=== PATIENT | female | born 1980 | race Caucasian/White ===

== ENCOUNTER 2019-07-08 21:26 | Inpatient (IN) | payer MEDICAID ==
[~2019-07-08] VITALS: Ht 167.6 cm; Wt 43.3 kg
[~2019-07-08 21:26] MED LIST: NO HOME MEDS
[2019-07-08] MEDS ORDERED: magnesium hydroxide 30ml (MOM) UD suspension PO PRN (22:05)
[2019-07-08] MEDS ORDERED: mag hydrox/Alum hydrox/simeth 30ml oral suspension PO PRN (22:05)
[2019-07-08] MEDS ORDERED: acetaminophen 325mg tablet PO PRN (22:05)
[2019-07-08] MEDS ORDERED: loperamide 2mg capsule PO PRN (22:05)
[2019-07-08] MEDS: LORazepam 1 MG tablet PO PRN (23:27)
[2019-07-08] MEDS ORDERED: RISP2TAB97 PO (23:40)
[2019-07-08] MEDS ORDERED: OLAN5TAB3 PO (23:40)
[2019-07-08] MEDS ORDERED: RISP1TAB13 PO (23:40)
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
[2019-07-09] MEDS: olanzapine 10mg tablet PO SCH ×2 (00:03→20:50)
[2019-07-09 08:00] VITALS: BP 100/60
[2019-07-09] MEDS: OLANZAPINE 5 MG TABLET PO SCH (08:03)
[2019-07-09 08:28] LABS: CHOL/HDL RATIO 2.8 (0.00-4.99); CHOLESTEROL 215 MG/DL (0-200); HDL CHOLESTEROL 78 MG/DL (35-60); LDL CHOLESTEROL 118 MG/DL (50-100); TRIGLYCERIDES 98 MG/DL (20-135)
[2019-07-09 08:32] LABS: HEMOGLOBIN A1C 4.8 % (4.5-6.2)
[2019-07-09] MEDS ORDERED: tuberculin, purif. prot. deriv. 5 units/0.1ml ID ONE (10:00)
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
[2019-07-09 19:37] VITALS: BP 132/53
[2019-07-09] MEDS: LORazepam 1 MG tablet PO PRN (20:50)
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
[2019-07-09] MEDS: divalproex sod 250mg ER (24-hour) tablet PO SCH (22:13)
[2019-07-10 07:43] VITALS: BP 97/63
[2019-07-10] MEDS: OLANZAPINE 5 MG TABLET PO SCH (07:56)
--- NOTE | 2019-07-10 16:02 | NUR ---
DISCHARGE PLANNING: ALLISON made TC to [facility] and learned pt receives psychiatric tx through [facility] and primary medical tx through [facility]. ALLISON was informed pt last seen at clinic in November 2018 and October 2018. ALLISON requested a psychiatric appointment with Dr. Clark. Tiffany Araujo, Creative Resource Manager HOME AGENT [id number] Supervised by Wali Ribeiro, [id number]
--- NOTE | 2019-07-10 18:34 | NUR ---
Nursing Progress Note Legal hold: 5150 Client on involuntary status for DTS. Report received from MAGALI Yates with use of SBAR. Why are they here: Pt on a 5150 for GD after she was BIB her daughter from [facility] (where she lives). Pt apparently has a dx of bipolar, but has stopped taking her medications about a week ago because she doesn't believe in the dx. Pt compliant with admission process; though, she is tangential and hyperverbal. Will provide safe environment while stabilizing on medications. Assessment What has happened this shift: Patient doing cartwheels in hallway at start of shift. Patient appears manic and is in her room cussing at someone, also talking to unknown persons in dining room. S/I, H/I: Denies A/VH: Denies Sleep: 7 hrs NOC. ADL's: Self Group attendance: Yes Were meds taken: Yes Any med S/E: None reported or observed. Mental Status Exam Appearance: Green Scrubs Eye contact: Direct Behavior: Calm Speech: Clear Mood: Calm and cooperative Affect: Animated Thought process: a bit disorganized, forgetful Thought Content: Worried about having to go to court today. States she didn't know she was on 5250 and became tearful when informed. Cognition: A/Ox3 Insight: Poor Judgment: Poor Interventions: PRN's used: N/A Therapeutic interventions: 1:1 assessment, provided therapeutic communication with active listening, administration/education/monitoring of medications, encouraged to shower and clean her bed area, maintained q15m safety checks. Restraints/seclusion/emergency medication: None Justification of Continued Inpatient Treatment: Pt is unable to utilize the resources available to her. She is unable to provide himself with penitentiary, clothing, or food.
[2019-07-10 19:42] VITALS: BP 127/63
[2019-07-10] MEDS: olanzapine 10mg tablet PO SCH (20:26)
[2019-07-10] MEDS: divalproex sod 250mg ER (24-hour) tablet PO SCH (20:26)
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
[2019-07-11] MEDS ORDERED: ondansetron 4mg rapidly disintigrating tab PO ONE (04:00)
[2019-07-11 08:06] VITALS: BP 102/69
[2019-07-11] MEDS: OLANZAPINE 5 MG TABLET PO SCH (08:23)
--- NOTE | 2019-07-11 18:06 | NUR ---
Nursing Progress Note Legal hold: 5150 Client on involuntary status for DTS. Report received from Lavonne Goff RN with use of SBAR. Why are they here: Pt on a 5150 for GD after she was BIB her daughter from [facility] (where she lives). Pt apparently has a dx of bipolar, but has stopped taking her medications about a week ago because she doesn't believe in the dx. Pt compliant with admission process; though, she is tangential and hyperverbal. Will provide safe environment while stabilizing on medications. Assessment What has happened this shift: Patient has has GI virus, and has had diarrhea five times today, and vomiting. Patient has stayed in bed all day, which is not usual for her. Pt. not eating due to GI upset. Patient did get up and was angrily walking hallways. For short time. S/I, H/I: Denies A/VH: Denies Sleep: Slept most of the day. ADL's: Self Group attendance: No Were meds taken: Yes Any med S/E: None reported or observed. Mental Status Exam Appearance: Disheveled wearing green Scrubs Eye contact: Fair. Behavior: Sleeping all day. Speech: Clear Mood: Subdued. Affect: Flat. Thought process: Linear. Thought Content: Not feeling well. Cognition: A/Ox3 Insight: Poor Judgment: Poor Interventions: PRN's used: N/A Therapeutic interventions: 1:1 assessment, provided therapeutic communication with active listening, administration/education/monitoring of medications, encouraged hydration, q15" safety checks. Restraints/seclusion/emergency medication: None Justification of Continued Inpatient Treatment: Patient needs interruption of crisis, medication stabilization and support to prevent rehospitalization.
[2019-07-11 19:00] VITALS: BP 116/42
[2019-07-11] MEDS: olanzapine 10mg tablet PO SCH (20:43)
[2019-07-11] MEDS: divalproex sod 250mg ER (24-hour) tablet PO SCH (20:43)
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
[2019-07-12 07:29] VITALS: BP 112/38
[2019-07-12] MEDS: OLANZAPINE 5 MG TABLET PO SCH (08:23)
[2019-07-12] MEDS: LORazepam 1 MG tablet PO PRN (11:39)
[2019-07-12] MEDS ORDERED: diphenhydrAMINE 25mg capsule PO ONE (11:55)
[2019-07-12] MEDS ORDERED: haloperidol 5mg tablet PO ONE (11:55)
[2019-07-12] MEDS ORDERED: LORazepam 1 MG tablet PO ONE (11:55)
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
[2019-07-12 20:00] VITALS: BP 108/62
[2019-07-12] MEDS: olanzapine 10mg tablet PO SCH (20:53)
[2019-07-12] MEDS: divalproex sod 250mg ER (24-hour) tablet PO SCH (20:54)
[2019-07-12] MEDS: hydrOXYzine 25 MG tablet PO PRN (20:54)
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
[2019-07-13 08:00] VITALS: BP 113/52
[2019-07-13] MEDS: OLANZAPINE 5 MG TABLET PO SCH (08:18)
[2019-07-13] MEDS: hydrOXYzine 25 MG tablet PO PRN ×2 (08:18→20:27)
--- NOTE | 2019-07-13 10:18 | NUR ---
Initial: Pt admit w/ bipolar PO 75-100% regular diet meeting needs. LB 07/12. No nutrition concerns at this time. Will continue to monitor. Addendum: 07/13/19 at [address] Amended: Links added.
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
[2019-07-13 19:28] VITALS: BP 104/68
[2019-07-13] MEDS: olanzapine 10mg tablet PO SCH (20:26)
[2019-07-13] MEDS: divalproex sod 250mg ER (24-hour) tablet PO SCH (20:26)
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
[2019-07-14 07:30] VITALS: BP 107/60
[2019-07-14] MEDS: hydrOXYzine 25 MG tablet PO PRN (07:58)
[2019-07-14] MEDS: OLANZAPINE 5 MG TABLET PO SCH (07:58)
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
[2019-07-14] MEDS ORDERED: haloperidol 5mg tablet PO ONE (15:35)
[2019-07-14] MEDS ORDERED: diphenhydrAMINE 25mg capsule PO ONE (15:35)
[2019-07-14] MEDS: LORazepam 1 MG tablet PO PRN (15:40)
[2019-07-14 20:28] VITALS: BP 109/57
[2019-07-14] MEDS ORDERED: olanzapine 10mg tablet PO SCH (21:00)
[2019-07-14] MEDS: divalproex sod 250mg ER (24-hour) tablet PO SCH (21:39)
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
[2019-07-15 07:25] VITALS: BP 111/64
[2019-07-15] MEDS ORDERED: OLANZapine 5mg rapidly disint. tablet PO SCH (08:00)
[2019-07-15] MEDS: OLANZAPINE 5 MG TABLET PO SCH (08:50)
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
[2019-07-15 20:52] VITALS: BP 122/55
[2019-07-15] MEDS: divalproex sod 250mg ER (24-hour) tablet PO SCH (21:05)
[2019-07-15] MEDS: olanzapine 10mg tablet PO SCH (21:07)
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
[2019-07-16 07:00] VITALS: BP 107/86
[2019-07-16] MEDS: OLANZAPINE 5 MG TABLET PO SCH (07:46)
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
[2019-07-16] MEDS: olanzapine 10mg tablet PO SCH (20:18)
[2019-07-16 20:31] VITALS: BP 96/54
[2019-07-16 20:36] VITALS: BP 96/54
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
[2019-07-17 08:00] VITALS: BP 109/71
[2019-07-17] MEDS ORDERED: divalproex sod 250mg ER (24-hour) tablet PO SCH (08:00)
[2019-07-17] MEDS: OLANZAPINE 5 MG TABLET PO SCH (08:47)
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
[2019-07-17 20:00] VITALS: BP 109/54
[2019-07-17] MEDS: olanzapine 10mg tablet PO SCH (20:32)
[2019-07-17] MEDS: hydrOXYzine 25 MG tablet PO PRN (22:30)
[2019-07-17] MEDS: acetaminophen 325mg tablet PO PRN (22:33)
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
[2019-07-18 08:00] VITALS: BP 101/50
[2019-07-18] MEDS ORDERED: divalproex sod 250mg ER (24-hour) tablet PO SCH (08:00)
[2019-07-18] MEDS: OLANZAPINE 5 MG TABLET PO SCH (08:11)
[2019-07-18] MEDS: divalproex sod 250mg ER (24-hour) tablet PO SCH (08:14)
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
[2019-07-18 19:31] VITALS: BP 119/83
[2019-07-18] MEDS: olanzapine 10mg tablet PO SCH (20:30)
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
[2019-07-19 08:00] VITALS: BP 115/42
[2019-07-19] MEDS: OLANZAPINE 5 MG TABLET PO SCH (08:18)
[2019-07-19] MEDS: divalproex sod 250mg ER (24-hour) tablet PO SCH (08:19)
[2019-07-19] MEDS: LORazepam 1 MG tablet PO PRN (09:22)
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
[2019-07-19 19:51] VITALS: BP 106/71
[2019-07-19] MEDS: olanzapine 10mg tablet PO SCH (20:45)
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
[2019-07-20 07:44] VITALS: BP 124/64
[2019-07-20] MEDS: divalproex sod 250mg ER (24-hour) tablet PO SCH (07:58)
[2019-07-20] MEDS: OLANZAPINE 5 MG TABLET PO SCH (07:58)
[2019-07-20] MEDS: LORazepam 1 MG tablet PO PRN (09:18)
--- NOTE | 2019-07-20 10:56 | NUR ---
reassessment: Pt PO 75-100% regular meals meeting needs. LBM 07/19. No nutrition concerns at this time. Will continue to monitor. Addendum: 07/20/19 at [address] Amended: Links added.
[2019-07-20] MEDS ORDERED: olanzapine 10mg tablet PO SCH (12:30)
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
[2019-07-20 20:00] VITALS: BP 115/55
[2019-07-20] MEDS: olanzapine 10mg tablet PO SCH (21:03)
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
[2019-07-21 07:00] VITALS: BP 115/49
[2019-07-21] MEDS: divalproex sod 250mg ER (24-hour) tablet PO SCH (07:42)
[2019-07-21] MEDS: OLANZAPINE 5 MG TABLET PO SCH ×2 (07:43→13:08)
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
[2019-07-21 20:27] VITALS: BP 116/60
[2019-07-21] MEDS: olanzapine 10mg tablet PO SCH (20:27)
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
[2019-07-22 07:36] VITALS: BP 108/67
[2019-07-22] MEDS: OLANZAPINE 5 MG TABLET PO SCH ×2 (07:59→13:04)
[2019-07-22] MEDS: divalproex sod 250mg ER (24-hour) tablet PO SCH (07:59)
[2019-07-22] MEDS: hydrOXYzine 25 MG tablet PO PRN (07:59)
[2019-07-22] MEDS: LORazepam 1 MG tablet PO PRN (08:51)
[2019-07-22] MEDS ORDERED: LORazepam 1 MG tablet PO STA (09:14)
[2019-07-22] MEDS: lithium carbonate 150mg capsule PO SCH ×2 (13:04→20:32)
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
[2019-07-22 20:25] VITALS: BP 100/48
[2019-07-22] MEDS: olanzapine 10mg tablet PO SCH (20:32)
--- NOTE | 2019-07-23 00:13 | NUR ---
Nursing Progress Note: The patient spent the majority of the evening on her bed sleeping. She was up out of bed for approximately 30 minutes to have snack. While up in the patient dining room she was polite, appropriate with peers and staff. One to one with the patient to assess severity of psychiatric symptoms. She denied any kind of medical problems or pain. She denied that she was having any suicidal or homicidal thoughts. She has been on q 15 minute safety checks. She denies having any psychotic symptoms and none were acutely evident in the brief time she was awake. She denied anxiety. She was medication complaint and she denied side effects to medications.
[2019-07-23] MEDS: lithium carbonate 150mg capsule PO SCH ×3 (07:56→20:04)
[2019-07-23] MEDS: divalproex sod 250mg ER (24-hour) tablet PO SCH (07:57)
[2019-07-23] MEDS: OLANZAPINE 5 MG TABLET PO SCH ×2 (07:57→12:30)
[2019-07-23 08:16] VITALS: BP 98/60
[2019-07-23 08:17] VITALS: BP 98/60
[2019-07-23] MEDS ORDERED: haloperidol lactate 5mg/ml inj ONE (10:48)
[2019-07-23] MEDS ORDERED: diphenhydrAMINE 50 mg/ml inj ONE (10:48)
[2019-07-23] MEDS ORDERED: LORazepam 2 mg/ml vial ONE (10:50)
--- NOTE | 2019-07-23 12:38 | NUR ---
At approximately 1030 patient became very agitated and unable to control behavior. Medicated with B52 (2mg Ativan, 50mg Benadryl, and 10mg Haldol). 1230 dose of Olanzapine held as patient is sleeping and had received Haldol.
--- NOTE | 2019-07-23 13:04 | NUR ---
MED NOTE: Patient received B52 at 1030. Per Tia Tran lithium held and should be given with PM dose.
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
[2019-07-23 19:54] VITALS: BP 107/71
[2019-07-23] MEDS: olanzapine 10mg tablet PO SCH (20:04)
[2019-07-23] MEDS ORDERED: lithium carbonate 150mg capsule PO ONE (21:00)
--- NOTE | 2019-07-23 22:37 | NUR ---
Nursing Progress Note: One to one with the patient to assess for the severity of psychiatric symptoms. She was initially resting on her bed and was cooperative with the evening assessment. All of her replies were superficial and brief. She quickly became angry when recalling an incident involving a visit she had earlier in the day. She denied having any side effects to medications and she was medication compliant. When asked how her mood was she gave a clipped reply "fine" but she was clearly angry. She did get up and sitting the dining room for the evening snack. She appeared to be disheveled and with dirty uncombed hair. She did not have any disruptive behaviors.
[2019-07-24 07:41] VITALS: BP 98/42
[2019-07-24] MEDS: lithium carbonate 150mg capsule PO SCH ×3 (08:14→21:20)
[2019-07-24] MEDS: OLANZAPINE 5 MG TABLET PO SCH ×2 (08:14→12:10)
[2019-07-24] MEDS: divalproex sod 250mg ER (24-hour) tablet PO SCH (08:39)
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
[2019-07-24 20:00] VITALS: BP 92/55
[2019-07-24] MEDS: olanzapine 10mg tablet PO SCH (21:21)
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
[2019-07-25 07:23] VITALS: BP 93/50
[2019-07-25] MEDS: OLANZAPINE 5 MG TABLET PO SCH ×2 (07:37→12:31)
[2019-07-25] MEDS: lithium carbonate 150mg capsule PO SCH ×3 (07:37→20:14)
[2019-07-25] MEDS: divalproex sod 250mg ER (24-hour) tablet PO SCH (07:37)
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
[2019-07-25 19:44] VITALS: BP 95/49
[2019-07-25 20:10] VITALS: BP 95/55
[2019-07-25] MEDS: olanzapine 10mg tablet PO SCH (20:14)
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
[2019-07-26] MEDS: OLANZAPINE 5 MG TABLET PO SCH ×2 (06:59→12:26)
[2019-07-26] MEDS: LORazepam 1 MG tablet PO PRN (07:00)
[2019-07-26] MEDS: lithium carbonate 150mg capsule PO SCH ×3 (07:00→21:09)
[2019-07-26] MEDS: divalproex sod 250mg ER (24-hour) tablet PO SCH (07:01)
[2019-07-26 07:14] VITALS: BP 98/62
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
[2019-07-26 19:34] VITALS: BP 105/43
[2019-07-26] MEDS: olanzapine 10mg tablet PO SCH (21:09)
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
[2019-07-27] MEDS: OLANZAPINE 5 MG TABLET PO SCH ×2 (07:39→12:46)
[2019-07-27] MEDS: divalproex sod 250mg ER (24-hour) tablet PO SCH (07:41)
[2019-07-27] MEDS: lithium carbonate 150mg capsule PO SCH ×3 (07:43→20:44)
[2019-07-27 08:00] VITALS: BP 103/64
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
--- NOTE | 2019-07-27 18:30 | NUR ---
Patient in room MH 324. I have received report from RN and had the opportunity to ask questions and assume patient care.
--- NOTE | 2019-07-27 18:40 | NUR ---
brianna in [place]
[2019-07-27 19:57] VITALS: BP 101/45
[2019-07-27] MEDS: olanzapine 10mg tablet PO SCH (20:44)
--- NOTE | 2019-07-27 20:46 | NUR ---
sitting up in bed no complaints. calm and pleasant
[2019-07-28] MEDS: OLANZAPINE 5 MG TABLET PO SCH ×2 (07:53→13:19)
[2019-07-28] MEDS: lithium carbonate 150mg capsule PO SCH ×3 (07:54→20:35)
[2019-07-28] MEDS: divalproex sod 250mg ER (24-hour) tablet PO SCH (07:55)
[2019-07-28 08:00] VITALS: BP 106/60
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
[2019-07-28 20:00] VITALS: BP 119/72
[2019-07-28] MEDS: olanzapine 10mg tablet PO SCH (20:35)
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
[2019-07-29 07:27] VITALS: BP 99/45
[2019-07-29] MEDS: OLANZAPINE 5 MG TABLET PO SCH ×3 (08:10→20:34)
[2019-07-29] MEDS: divalproex sod 250mg ER (24-hour) tablet PO SCH (08:10)
[2019-07-29] MEDS: lithium carbonate 150mg capsule PO SCH ×3 (08:11→20:38)
--- NOTE | 2019-07-29 09:56 | NUR ---
reassessment: Pt PO 75-100% regular meals meeting needs. LBM 07/28. No nutrition concerns at this time. Will continue to monitor. Recommend: 1. continue regular diet 2. weekly wts Addendum: 07/29/19 at [address] Amended: Links added.
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
[2019-07-29 20:08] VITALS: BP 99/52
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
[2019-07-30] MEDS: lithium carbonate 150mg capsule PO SCH ×3 (07:43→20:38)
[2019-07-30] MEDS: divalproex sod 250mg ER (24-hour) tablet PO SCH (07:44)
[2019-07-30] MEDS: OLANZAPINE 5 MG TABLET PO SCH ×3 (07:44→20:38)
[2019-07-30 08:00] VITALS: BP 104/45
--- NOTE | 2019-07-30 12:12 | NUR ---
DISCHARGE PLANNING: Maged from [facility] interviewed pt for potential acceptance of temporary placement. Maged reports he would prefer to interview pt again next week to see if medication reduces any sx of demetrio or increases thought process/clarity. ALLISON agreed to contact again on Sunday. Tiffany Araujo, Crossing Tender [employer]LECT[employer]LE [employer]IVER [id number] Supervised by Wali Ribeiro, [id number]
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
[2019-07-30 20:12] VITALS: BP 104/60
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
[2019-07-31 07:36] VITALS: BP 107/68
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
[2019-07-31] MEDS: divalproex sod 250mg ER (24-hour) tablet PO SCH (08:28)
[2019-07-31] MEDS: lithium carbonate 150mg capsule PO SCH ×3 (08:28→20:44)
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
[2019-07-31 20:11] VITALS: BP 99/57
[2019-07-31] MEDS ORDERED: OLANZAPINE 5 MG TABLET PO SCH (21:00)
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
[2019-08-01 08:03] VITALS: BP 88/54
[2019-08-01] MEDS: lithium carbonate 150mg capsule PO SCH ×3 (08:14→20:31)
[2019-08-01] MEDS: divalproex sod 250mg ER (24-hour) tablet PO SCH (08:14)
[2019-08-01] MEDS ORDERED: buPROPion 75mg tablet PO ONE (15:50)
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
[2019-08-01 20:00] VITALS: BP 96/58
[2019-08-01] MEDS ORDERED: OLANZAPINE 5 MG TABLET PO SCH (21:00)
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
[2019-08-02] MEDS ORDERED: buPROPion 100mg tablet PO SCH (07:30)
[2019-08-02] MEDS: buPROPion 75mg tablet PO SCH ×2 (07:58→12:49)
[2019-08-02] MEDS: divalproex sod 250mg ER (24-hour) tablet PO SCH (07:59)
[2019-08-02] MEDS: lithium carbonate 150mg capsule PO SCH ×3 (07:59→20:11)
[2019-08-02 08:29] VITALS: BP 98/48
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
[2019-08-02 20:00] VITALS: BP 100/50
[2019-08-02] MEDS: hydrOXYzine 25 MG tablet PO PRN (22:02)
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
[2019-08-03] MEDS: LORazepam 1 MG tablet PO PRN ×2 (01:04→21:45)
[2019-08-03 08:00] VITALS: BP 94/60
[2019-08-03] MEDS: buPROPion 100mg tablet PO SCH ×2 (08:14→12:22)
[2019-08-03] MEDS: divalproex sod 250mg ER (24-hour) tablet PO SCH (08:15)
[2019-08-03] MEDS: lithium carbonate 150mg capsule PO SCH ×3 (08:15→20:12)
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
[2019-08-03 19:26] VITALS: BP 108/59
[2019-08-03] MEDS: acetaminophen 325mg tablet PO PRN (21:09)
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
--- NOTE | 2019-08-04 07:44 | NUR ---
COLLATERAL/DISCHARGE PLANNING: SW made TC to pt's father, Gary at [phone], who reports he will be picking up pt on 08/05/2019 at 08:00 hours. He reports he will be having pt discharge to his home, then admit to a substance use recovery program. Tiffany Araujo, Die Tester BOILING TUB OPERATOR [id number] Supervised by Wali Ribeiro, [id number]
[2019-08-04 07:57] VITALS: BP 117/63
[2019-08-04] MEDS: divalproex sod 250mg ER (24-hour) tablet PO SCH (08:31)
[2019-08-04] MEDS: buPROPion 100mg tablet PO SCH ×2 (08:31→13:14)
[2019-08-04] MEDS: lithium carbonate 150mg capsule PO SCH ×3 (08:32→20:18)
[2019-08-04] MEDS ORDERED: DIVA250T8 PO (13:58)
[2019-08-04] MEDS ORDERED: DIVA500T2 PO (13:58)
[2019-08-04] MEDS ORDERED: LIT300C PO (13:58)
[2019-08-04] MEDS ORDERED: BUPR100T16 PO (13:58)
[2019-08-04] MEDS ORDERED: HYDR-3686 PO (13:58)
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
[2019-08-04 20:27] VITALS: BP 122/57
[2019-08-04] MEDS: LORazepam 1 MG tablet PO PRN (21:05)
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
[2019-08-05 07:36] VITALS: BP 120/68
[2019-08-05] MEDS: lithium carbonate 150mg capsule PO SCH (07:47)
[2019-08-05] MEDS: divalproex sod 250mg ER (24-hour) tablet PO SCH (07:47)
[2019-08-05] MEDS: buPROPion 100mg tablet PO SCH (07:47)
--- NOTE | 2019-08-05 08:21 | NUR ---
Discharge note: Pt discharged without incident and was accompanied by this nurse and her father to home via personal vehicle. She left with all of her personal items in possession as per inventory. Pt was pleasant and cooperative with care. She denied SI/HI/AH/VH. She has exhibited improvement since admission and exhibits no s/sx of demetrio or depression. Pt states "I feel so great and am really happy to discharge. I am going to be better". No acute physical or emotional distress observed. Nicotine replacement and cessation education offered and Pt declined. Follow up instructions were given, questions were answered and Pt verbalized understanding and denied further needs.
== END 2019-08-05 08:40 | disposition home or self-care (01) | DRG 753 ==
LOC: ADULT MH 21:59
PROVIDERS: ADMIT Psychiatry & Neurology Psychiatry; ATTEND Psychiatry & Neurology Psychiatry
DX: F31.2 Bipolar disorder, current episode manic severe with psychotic features (principal); R45.851 Suicidal ideations; F12.90 Cannabis use, unspecified, uncomplicated; F17.210 Nicotine dependence, cigarettes, uncomplicated; Z80.0 Family history of malignant neoplasm of digestive organs; Z79.899 Other long term (current) drug therapy
CPT/HCPCS: 36415; 80061; 80164; 80178; 83036; 87081; J1200; J1630; J2060; Q0163; Z7610

== ENCOUNTER 2023-04-14 10:19 | Emergency (ER) | payer MEDICAID ==
[~2023-04-14] VITALS: Ht 157.5 cm; Wt 50.0 kg
[~2023-04-14 10:19] MED LIST changes: +BUPR-122 PO; +DIVA250T8 PO; +DIVA500T2 PO; +HYDR-3686 PO; +LIT300C PO; -NO HOME MEDS
[2023-04-14] MEDS ORDERED: normal saline 1000ML IV soln IV ONE (10:35)
[2023-04-14] MEDS ORDERED: LORazepam 2 mg/ml vial IV ONE (10:35)
[2023-04-14 10:54] LABS: BASOPHILS # (AUTO) 0.1 X10'3 (0-0.2); BASOPHILS % (AUTO) 0.9 % (0-1); EOSINOPHILS # (AUTO) 0.1 X10'3 (0-0.9); EOSINOPHILS % (AUTO) 1.7 % (0-6); HEMATOCRIT 31.1 % (35.0-45.0); HEMOGLOBIN 10.7 g/dl (12.0-16.0); LYMPHOCYTES % (AUTO) 28.4 % (21-51); MEAN CORPUSCULAR HEMOGLOBIN 31.3 PG (27.0-31.0); MEAN CORPUSCULAR HGB CONC 34.4 g/dL (33.0-36.5); MEAN CORPUSCULAR VOLUME 90.9 FL (78-98); MEAN PLATELET VOLUME 9.2 FL (7.4-10.4); MONOCYTES # (AUTO) 0.7 X10'3 (0-0.9); NEUTROPHILS # (AUTO) 4.2 X10'3 (1.8-7.7); PLATELET COUNT 213 X10'3 (140-440); RED BLOOD COUNT 3.42 X10'6 (4.20-5.60); RED CELL DISTRIBUTION WIDTH 14.2 % (11.5-14.5); WHITE BLOOD COUNT 7.1 X10'3 (4.5-11.0)
[2023-04-14 11:09] LABS: ALANINE AMINOTRANSFERASE 95 U/L (12-78); ALBUMIN 3.3 G/DL (3.4-5.0); ALBUMIN/GLOBULIN RATIO 1.3 (1.1-1.5); ALKALINE PHOSPHATASE 59 IU/L (46-116); ANION GAP 6 (8-16); ASPARTATE AMINO TRANSFERASE 91 U/L (10-37); BILIRUBIN,TOTAL 0.3 MG/DL (0.1-1.0); BLOOD UREA NITROGEN 33 MG/DL (7-18); CALCIUM 7.9 MG/DL (8.5-10.1); CHLORIDE 108 MMOL/L (99-107); CREATININE 1.22 MG/DL (0.40-0.90); GLUCOSE 89 MG/DL (70-104); MAGNESIUM 1.6 MG/DL (1.5-2.4); SODIUM 144 MMOL/L (135-145); TOTAL CARBON DIOXIDE 29.7 MMOL/L (24-32); TOTAL PROTEIN 5.9 G/DL (6.4-8.2); eGFR 48 ML/MIN
--- NOTE | 2023-04-14 11:13 | NUR ---
Pt is now calm. Pt is resting in bed, no longer trying to pull of her clothes.
[2023-04-14 11:19] LABS: POTASSIUM 2.9 MMOL/L (3.5-5.1)
[2023-04-14] MEDS ORDERED: potassium Cl 20 mEq SR tablet PO STA (11:25)
--- NOTE | 2023-04-14 12:09 | NUR ---
Pt in bed resting
--- NOTE | 2023-04-14 13:17 | NUR ---
Pt in bed resting, eye closed
[2023-04-14 13:50] VITALS: BP 117/69
--- NOTE | 2023-04-14 14:01 | NUR ---
Pt up to the RR. Voided
--- NOTE | 2023-04-14 14:08 | NUR ---
Pt in bed resting, eyes closed
--- NOTE | 2023-04-14 15:58 | NUR ---
Pt in bed resting. Eyes closed.
== END 2023-04-14 17:59 | disposition home or self-care (01) ==
LOC: ER 10:20
DX: F19.10 Other psychoactive substance abuse, uncomplicated (principal); E86.0 Dehydration; E87.6 Hypokalemia; F31.9 Bipolar disorder, unspecified; F12.90 Cannabis use, unspecified, uncomplicated; Z56.0 Unemployment, unspecified
CPT/HCPCS: 36415; 71045; 80053; 83735; 84484; 85025; 96374; 99284; J2060; J7030

== ENCOUNTER 2023-04-15 22:39 | Emergency (ER) | payer MEDICAID ==
[~2023-04-15] VITALS: Ht 167.6 cm; Wt 110.0 kg
[2023-04-15 23:19] VITALS: BP 134/101
[2023-04-15 23:39] LABS: HCG SERUM QL NEGATIVE
== END 2023-04-15 23:56 | disposition home or self-care (01) ==
LOC: ER 22:39
DX: F15.10 Other stimulant abuse, uncomplicated (principal); F12.10 Cannabis abuse, uncomplicated; F31.9 Bipolar disorder, unspecified; Z79.899 Other long term (current) drug therapy
CPT/HCPCS: 36415; 84703; 99283

== ENCOUNTER 2023-04-21 11:42 | Emergency (ER) | payer MEDICAID ==
[~2023-04-21] VITALS: Ht 162.6 cm; Wt 56.8 kg
[2023-04-21 12:32] LABS: BASOPHILS % (AUTO) 0.6 % (0-1); EOSINOPHILS # (AUTO) 0.1 X10'3 (0-0.9); EOSINOPHILS % (AUTO) 1.3 % (0-6); HEMATOCRIT 34.9 % (35.0-45.0); HEMOGLOBIN 11.7 g/dl (12.0-16.0); LYMPHOCYTES # (AUTO) 1.8 X10'3 (1.1-4.8); LYMPHOCYTES % (AUTO) 21.1 % (21-51); MEAN CORPUSCULAR HEMOGLOBIN 30.8 PG (27.0-31.0); MEAN CORPUSCULAR HGB CONC 33.4 g/dL (33.0-36.5); MEAN CORPUSCULAR VOLUME 92.3 FL (78-98); MEAN PLATELET VOLUME 9.1 FL (7.4-10.4); MONOCYTES # (AUTO) 0.9 X10'3 (0-0.9); MONOCYTES % (AUTO) 11.3 % (2-12); NEUTROPHILS # (AUTO) 5.5 X10'3 (1.8-7.7); NEUTROPHILS % (AUTO) 65.7 % (42-75); PLATELET COUNT 297 X10'3 (140-440); RED BLOOD COUNT 3.78 X10'6 (4.20-5.60); WHITE BLOOD COUNT 8.4 X10'3 (4.5-11.0)
[2023-04-21 12:53] LABS: ALANINE AMINOTRANSFERASE 127 U/L (12-78); ALBUMIN/GLOBULIN RATIO 1.4 (1.1-1.5); ALKALINE PHOSPHATASE 79 IU/L (46-116); ANION GAP 6 (8-16); ASPARTATE AMINO TRANSFERASE 104 U/L (10-37); BILIRUBIN,TOTAL 0.3 MG/DL (0.1-1.0); BLOOD UREA NITROGEN 36 MG/DL (7-18); CALCIUM 9.5 MG/DL (8.5-10.1); CHLORIDE 104 MMOL/L (99-107); CREATININE 1.06 MG/DL (0.40-0.90); GLUCOSE 98 MG/DL (70-104); POTASSIUM 3.8 MMOL/L (3.5-5.1); SODIUM 141 MMOL/L (135-145); TOTAL CARBON DIOXIDE 30.8 MMOL/L (24-32); TOTAL PROTEIN 6.9 G/DL (6.4-8.2); eGFR 57 ML/MIN
[2023-04-21 13:02] LABS: ETHANOL < 0.010 GM/DL (0.0-0.010)
--- NOTE | 2023-04-21 14:01 | NUR ---
PT STATES, " I WAS IN THE NEIGHBORS YARD PLAYING IN THE SANDBOX. " HAD NO FEELINGS TO HURT MYSELF OR OTHERS.
[2023-04-21] MEDS ORDERED: haloperidol lactate 5mg/ml inj IM ONE (16:55)
[2023-04-21] MEDS ORDERED: LORazepam 2 mg/ml vial IM ONE (16:55)
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
--- NOTE | 2023-04-21 18:45 | NUR ---
Patient brought from main ED room 14 to ER overflow bed 24. Patilent is sleeping. She awoke slightly when being moved to overflow bed then immediately returned to sleep. Patient is in direct view from nurses station.
--- NOTE | 2023-04-21 20:00 | NUR ---
Patient is in a deep sleep. In view from the nurses station.
--- NOTE | 2023-04-21 21:42 | NUR ---
Patient awoke, ate a sandwich. Will not interview about herself or any medical broblems. Patient meets ones needs. Poor eye contact. Patient returns to sleep.
[2023-04-21 22:11] LABS: URINE HCG NEGATIVE (NEG)
[2023-04-21 22:26] LABS: URINE AMPHETAMINE SCREEN NEGATIVE (Neg); URINE BARBITUATE SCREEN NEGATIVE (Neg); URINE BENZODIAZEPINES SCREEN NEGATIVE (Neg); URINE CANNABINOID SCREEN NEGATIVE (Neg); URINE COCAINE SCREEN NEGATIVE (Neg); URINE METHADONE SCREEN NEGATIVE (Neg); URINE OPIATE SCREEN NEGATIVE (Neg); URINE PHENCYCLIDINE SCREEN NEGATIVE (Neg)
--- NOTE | 2023-04-21 22:39 | NUR ---
Per lab the urine specimen that the patient provided appears to tab water. Specimen will be recollected and the patient's RN was made aware.
--- NOTE | 2023-04-22 02:08 | NUR ---
Patient is sleeping on her right side. In view from nurses station. No distress.
--- NOTE | 2023-04-22 02:49 | NUR ---
Patient awakens, she does a straingt leg lift on three occasions and slams them hard down onto the bed. The patient then guzzles water from her pitcher and stares at this financial writer . She then throws her blanket over herself and returns to sleep.
--- NOTE | 2023-04-22 03:20 | NUR ---
Patient is sleeping quietly, supin in bed. No signs of distress.
--- NOTE | 2023-04-22 04:54 | NUR ---
New urine sample required for UA, Urine Tox, Urine HCG. Previous analysis was most likely done on a tap water sample provided by the patient. The Tox and Urine preg were probably negative based on tap water instead of this patients urine. This science writer advised BRII AGUILAR and Dr. Mcpherson advised this science writer to reorder tests. The previous tests could not be redacted as they were resulted prior to the results of tap water comparison to the (false) urine sample provided by the patient. New tests ordered. Please collect and send a new [facility] Urine sample for re-evaluation.
[2023-04-22 06:06] LABS: URINE HCG NEGATIVE (NEG)
[2023-04-22 06:07] LABS: CLARITY,URINE CLEAR (Clear); COLOR,URINE YELLOW (Yellow); UA COLLECTION TYPE CLN CATCH MIDSTREAM
[2023-04-22 06:08] LABS: GLUCOSE, URINE NEGATIVE (Neg); KETONES,URINE 15 mg/dl (Neg); LEUKOCYTE ESTERASE ,URINE NEGATIVE (Neg); NITRITES, URINE NEGATIVE (Neg); OCCULT BLOOD,URINE NEGATIVE (Neg); PROTEIN,URINE NEGATIVE (Neg); UROBILINOGEN,URINE 0.2 E.U/dL (0.2-1.0)
[2023-04-22 06:22] LABS: URINE AMPHETAMINE SCREEN POSITIVE (Neg); URINE BARBITUATE SCREEN NEGATIVE (Neg); URINE BENZODIAZEPINES SCREEN NEGATIVE (Neg); URINE CANNABINOID SCREEN POSITIVE (Neg); URINE COCAINE SCREEN NEGATIVE (Neg); URINE METHADONE SCREEN NEGATIVE (Neg); URINE OPIATE SCREEN NEGATIVE (Neg); URINE PHENCYCLIDINE SCREEN NEGATIVE (Neg)
--- NOTE | 2023-04-22 06:45 | NUR ---
Pt laying on side resting with eyes closed, effortless respirations observed. Attempted to take morning VSs earliere and pt became irritated taking off BP cuff as well as pulse ox.
--- NOTE | 2023-04-22 06:50 | NUR ---
Packet faxed to [facility] office.
--- NOTE | 2023-04-22 08:17 | NUR ---
Breakfast tray placed at pt bedside. Pt got up, used restroom and now resting in bed.
--- NOTE | 2023-04-22 10:40 | NUR ---
Pt currently being seen by [facility] worker Gurjit
[2023-04-22] MEDS ORDERED: NO HOME MEDS (16:10)
[2023-04-22 19:32] VITALS: BP 126/92
== END 2023-04-22 19:34 ==
LOC: ER 11:43
DX: F30.9 Manic episode, unspecified (principal); Z20.822 Contact with and (suspected) exposure to COVID-19; E86.0 Dehydration; F12.90 Cannabis use, unspecified, uncomplicated; Z56.0 Unemployment, unspecified; Z72.89 Other problems related to lifestyle; Z79.899 Other long term (current) drug therapy
CPT/HCPCS: 36415; 80053; 80305; 80320; 81003; 81025; 84443; 85025; 87811; 96372; 99285; J1630; J2060

== ENCOUNTER 2023-07-14 15:11 | Inpatient (IN) | payer MEDICAID ==
[~2023-07-14] VITALS: Ht 152.4 cm; Wt 48.0 kg
[~2023-07-14 15:11] MED LIST changes: -BUPR-122 PO; -DIVA250T8 PO; -DIVA500T2 PO; -HYDR-3686 PO; -LIT300C PO; +NO HOME MEDS
[2023-07-14] MEDS ORDERED: haloperidol lactate 5mg/ml inj IM ONE (15:25)
[2023-07-14] MEDS ORDERED: diphenhydrAMINE 50 mg/ml inj IM ONE (15:25)
[2023-07-14] MEDS ORDERED: LORazepam 2 mg/ml vial IM ONE (15:25)
--- NOTE | 2023-07-14 15:40 | NUR ---
PT HAS BEEN RELEASED FROM [facility] PER [facility] - SECURITY IS AT BEDSIDE
[2023-07-14] MEDS ORDERED: piperacillin/tazo 4.5gm/100ml 100 ML IV STA (15:46)
[2023-07-14] MEDS ORDERED: vancomycin/NS 1 GM ADD-VANTAGE 250 ML X 1 DOSE IV ONE (16:05)
[2023-07-14 16:28] LABS: BASOPHILS % (AUTO) 0.7 % (0-1); EOSINOPHILS # (AUTO) 0.1 X10'3 (0-0.9); EOSINOPHILS % (AUTO) 2.2 % (0-6); HEMATOCRIT 32.3 % (35.0-45.0); HEMOGLOBIN 10.9 g/dl (12.0-16.0); LYMPHOCYTES # (AUTO) 1.5 X10'3 (1.1-4.8); LYMPHOCYTES % (AUTO) 23.7 % (21-51); MEAN CORPUSCULAR HEMOGLOBIN 30.7 PG (27.0-31.0); MEAN CORPUSCULAR HGB CONC 33.7 g/dL (33.0-36.5); MEAN CORPUSCULAR VOLUME 90.9 FL (78-98); MEAN PLATELET VOLUME 8.8 FL (7.4-10.4); MONOCYTES # (AUTO) 0.7 X10'3 (0-0.9); MONOCYTES % (AUTO) 10.6 % (2-12); NEUTROPHILS # (AUTO) 3.9 X10'3 (1.8-7.7); NEUTROPHILS % (AUTO) 62.8 % (42-75); PLATELET COUNT 256 X10'3 (140-440); RED BLOOD COUNT 3.55 X10'6 (4.20-5.60); RED CELL DISTRIBUTION WIDTH 14.5 % (11.5-14.5); WHITE BLOOD COUNT 6.3 X10'3 (4.5-11.0)
[2023-07-14 16:40] LABS: BILIRUBIN,URINE NEGATIVE (Neg); CLARITY,URINE CLEAR (Clear); COLOR,URINE YELLOW (Yellow); GLUCOSE, URINE NEGATIVE (Neg); KETONES,URINE NEGATIVE (Neg); LEUKOCYTE ESTERASE ,URINE NEGATIVE (Neg); NITRITES, URINE NEGATIVE (Neg); OCCULT BLOOD,URINE NEGATIVE (Neg); PROTEIN,URINE 30 mg/dl (Neg); UROBILINOGEN,URINE 0.2 E.U/dL (0.2-1.0)
[2023-07-14 16:41] LABS: URINE HCG NEGATIVE (NEG)
[2023-07-14 16:43] LABS: UA COLLECTION TYPE STRAIGHT CATH
[2023-07-14 16:44] LABS: BACTERIA,URINE NONE SEEN /HPF (Neg); MUCUS STRANDS FEW /LPF (Neg); RBC,URINE 0-2 /HPF (0-2); SQUAMOUS EPITHELIAL CELL,UR FEW /LPF (FEW); WBC,URINE 0-4 /HPF (0-4)
[2023-07-14 16:47] LABS: ALANINE AMINOTRANSFERASE 66 U/L (12-78); ALBUMIN 2.9 G/DL (3.4-5.0); ALBUMIN/GLOBULIN RATIO 0.8 (1.1-1.5); ALKALINE PHOSPHATASE 115 IU/L (46-116); ANION GAP 10 (8-16); ASPARTATE AMINO TRANSFERASE 55 U/L (10-37); BILIRUBIN,TOTAL 0.5 MG/DL (0.1-1.0); BLOOD UREA NITROGEN 28 MG/DL (7-18); BUN/CREATININE RATIO 30.4 (10.0-20.0); CHLORIDE 108 MMOL/L (99-107); CREATININE 0.92 MG/DL (0.40-0.90); ETHANOL < 10 MG/DL (<10); GLUCOSE 89 MG/DL (70-104); MAGNESIUM 1.8 MG/DL (1.5-2.4); SODIUM 147 MMOL/L (135-145); TOTAL CARBON DIOXIDE 29.2 MMOL/L (24-32); TOTAL PROTEIN 6.7 G/DL (6.4-8.2); eCRCL 57 ML/MIN; eGFR 67 ML/MIN
[2023-07-14 16:48] LABS: POTASSIUM 2.9 MMOL/L (3.5-5.1)
--- NOTE | 2023-07-14 16:54 | NUR ---
patient is in bed resting quietly, vitals being monitored. no distress noted at this time.
[2023-07-14 16:59] LABS: URINE AMPHETAMINE SCREEN POSITIVE (Neg); URINE BARBITUATE SCREEN NEGATIVE (Neg); URINE BENZODIAZEPINES SCREEN NEGATIVE (Neg); URINE CANNABINOID SCREEN POSITIVE (Neg); URINE COCAINE SCREEN NEGATIVE (Neg); URINE METHADONE SCREEN NEGATIVE (Neg); URINE OPIATE SCREEN NEGATIVE (Neg); URINE PHENCYCLIDINE SCREEN NEGATIVE (Neg)
[2023-07-14] MEDS ORDERED: HYDROcodone/acetaminophen 10/325mg tab PO PRN (20:35)
[2023-07-14] MEDS ORDERED: potassium Cl 40MEQ/1/2NS 520ml 520 ML IV PRN (20:35)
[2023-07-14] MEDS ORDERED: ondansetron/PF 4mg/2ml inj IV PRN (20:35)
[2023-07-14] MEDS ORDERED: magnesium Cl slow-release 64mg tablet PO PRN (20:35)
[2023-07-14] MEDS ORDERED: magnesium 2GM in 50ml NS 50 ML IV PRN (20:35)
[2023-07-14] MEDS ORDERED: potassium cl 20mEq in 1/2 NS 1,000 ML IV SCH (20:35)
[2023-07-14] MEDS ORDERED: acetaminophen 325mg tablet PO PRN (20:35)
[2023-07-14] MEDS ORDERED: magnesium 4gm in 100ml NS 100 ML IV PRN (20:35)
[2023-07-14] MEDS ORDERED: magnesium hydroxide 30ml (MOM) UD suspension PO PRN (20:35)
[2023-07-14] MEDS ORDERED: potassium Cl 20 mEq SR tablet PO PRN ×2 (20:35)
[2023-07-14] MEDS ORDERED: HYDROcodone/acetaminophen 5mg/325mg tablet PO PRN (20:35)
[2023-07-14] MEDS ORDERED: morphine 2 MG/ML inj. syringe IV PRN (20:35)
[2023-07-14] MEDS ORDERED: mag hydrox/Alum hydrox/simeth 30ml oral suspension PO PRN (20:35)
[2023-07-15 04:00] VITALS: BP 125/72; PULSE 77; RESP 16; TEMP 98.2; O2SAT 98
--- NOTE | 2023-07-15 06:45 | NUR ---
pt awoke and immediately began screaming and shouting obscenities at staff "I need to use the fucking bathroom, is someone going to come in here and fucking help me?" - advised pt this behavior is not acceptable and will not be tolerated. she appologized and was disconnected and directed to the restroom. she ambulated with steady gait to restroom.
--- NOTE | 2023-07-15 06:50 | NUR ---
Pt left AMA w/ IV intact out of the RR. Security was notified. Pt was seen by staff entering into the RR. When staff went to check on Pt, Pt was missing from the RR.
--- NOTE | 2023-07-15 07:21 | NUR ---
Pt seen by security camera covered in a sheet leaving the facility.
--- NOTE | 2023-07-15 07:30 | NUR ---
Pt is still not located, [facility] Com notified of Pt leaving w/ IV in place.
[2023-07-15] MEDS ORDERED: enoxaparin 40mg/0.4ml syringe SUBCUT SCH (08:00)
[2023-07-15] MEDS ORDERED: K and/or MAG REPLACEMENT MC SCH (08:00)
[2023-07-15] MEDS ORDERED: docusate sod 100mg capsule PO SCH (08:00)
== END 2023-07-15 07:30 | disposition left against medical advice (07) | DRG 383 ==
LOC: ER 15:12 → ED HOLD 20:36
PROVIDERS: ADMIT Internal Medicine; ATTEND Internal Medicine
DX: L02.512 Cutaneous abscess of left hand (principal); E87.6 Hypokalemia; L03.114 Cellulitis of left upper limb; F15.159 Other stimulant abuse with stimulant-induced psychotic disorder, unspecified; F12.90 Cannabis use, unspecified, uncomplicated; F31.9 Bipolar disorder, unspecified; Z53.29 Procedure and treatment not carried out because of patient's decision for other reasons; Z56.0 Unemployment, unspecified
CPT/HCPCS: 36415; 71045; 73120; 80053; 80305; 80320; 81001; 81025; 83605; 83735; 84145; 84484; 85025; 87040; 87070; 87077; 87186; 93005; 96365; 99285; A4353; G0378; J1200; J1630; J2060; J2543; J3370; J3480; J7030